=== PATIENT | female | born 1950 | race Caucasian/White ===

== ENCOUNTER 2019-04-28 10:18 | Emergency (ER) | payer OTHER ==
[~2019-04-28] VITALS: Ht 165.1 cm; Wt 63.5 kg
--- NOTE | 2019-04-28 10:20 | NUR ---
BIBA TAKEN TO BED 9
[2019-04-28 10:21] VITALS: BP 148/77
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
--- NOTE | 2019-04-28 10:27 | NUR ---
AT BEDSIDE EXAMINING PT
[2019-04-28] MEDS ORDERED: KETOROLAC 30 MG/ML VIAL IM ONE (10:35)
--- NOTE | 2019-04-28 10:37 | NUR ---
PT TO XRAY VIA W/C
--- NOTE | 2019-04-28 10:42 | NUR ---
PT RETURNED FROM XRAY VIA WHEELCHAIR . PT STABLE. VSS. WILL CONTINUE TO MONITOR.
[2019-04-28] MEDS ORDERED: INTUBATION KIT MC ONE (12:06)
[2019-04-28 12:26] VITALS: BP 146/76
== END 2019-04-28 12:27 | disposition home or self-care (01) ==
LOC: MED 10:18
DX: S39.012A Strain of muscle, fascia and tendon of lower back, initial encounter (principal); S00.83XA Contusion of other part of head, initial encounter; Z88.5 Allergy status to narcotic agent; V49.49XA Driver injured in collision with other motor vehicles in traffic accident, initial encounter; Y93.89 Activity, other specified; Y92.89 Other specified places as the place of occurrence of the external cause; Y99.8 Other external cause status
CPT/HCPCS: 72100; 96372; 99283; J1885